=== PATIENT | male | born 1970 | race Caucasian/White ===

== ENCOUNTER 2023-02-08 19:07 | Emergency (ER) | payer SELFPAY ==
[~2023-02-08] VITALS: Ht 167.6 cm; Wt 68.0 kg
[2023-02-08 19:18] VITALS: BP 155/93
--- NOTE | 2023-02-08 19:22 | NUR ---
[facility]
[2023-02-08 19:50] VITALS: BP 155/93
--- NOTE | 2023-02-08 23:42 | NUR ---
Dr. Lanier examining patient.
--- NOTE | 2023-02-09 00:52 | NUR ---
Patient left with out d/c papers.
== END 2023-02-09 00:52 | disposition home or self-care (01) ==
LOC: MED 19:07
DX: T73.0XXA Starvation, initial encounter (principal); Z59.00 Homelessness unspecified
CPT/HCPCS: 99283